=== PATIENT | female | born 1935 | race Two or more races ===

== ENCOUNTER 2016-07-23 12:46 | Emergency (ER) | payer MEDICARE, MEDICAID ==
[~2016-07-23] VITALS: Ht 149.9 cm; Wt 72.6 kg
[~2016-07-23 12:46] MED LIST: AMLO10TA2 PO; ASPI81TA2 PO; ATOR40TA PO; CARV6.252 PO; DICL75TA5 PO; ESOM40CA PO; GABA-532 PO; METF500T4 PO; SITA100T PO; SOLI10TA PO; SULF1TAB3 PO
[2016-07-23] MEDS ORDERED: IV NS 0.9% 1,000 ML BAG IV ONE (13:00)
[2016-07-23] MEDS ORDERED: IV SET PRIMARY 1 EA INFUS.SET MC ONE (13:02)
[2016-07-23] MEDS ORDERED: IV NS 0.9% 1,000 ML ONE (13:02)
[2016-07-23 13:18] LABS: BASOPHILS % (AUTO) 0.4 % (0.0-2.0); DIFF TOTAL % 100 %; EOSINOPHILS # (AUTO) 0.4 /CMM (0.0-0.7); EOSINOPHILS % (AUTO) 4.5 % (0.0-6.0); HEMATOCRIT 37 % (33-45); HEMOGLOBIN 12.7 g/dL (11.5-14.8); LYMPHOCYTES # (AUTO) 1.8 /CMM (0.8-4.8); LYMPHOCYTES % (AUTO) 21.3 % (20.0-44.0); MEAN CORPUSCULAR HEMOGLOBIN 32 PG (26.0-33.0); MEAN CORPUSCULAR HGB CONC 34 g/dl (31.0-36.0); MEAN CORPUSCULAR VOLUME 94 fL (82-100); MONOCYTES # (AUTO) 0.5 /CMM (0.1-1.30); MONOCYTES % (AUTO) 6.5 % (2.0-12.0); NEUTROPHILS # (AUTO) 5.7 /CMM (1.8-8.9); NEUTROPHILS % (AUTO) 67.3 % (43.0-81.0); PLATELET COUNT (AUTO) 239 /CMM (150-450); RED BLOOD CELL COUNT(AUTO) 3.97 MIL/uL (4.0-5.2); WHITE BLOOD COUNT (AUTO) 8.4 K/uL (4.3-11.0)
[2016-07-23 13:48] LABS: ALANINE AMINOTRANSFERASE 30 U/L (12-78); ALBUMIN 3.5 g/dL (3.4-5.0); ANION GAP 15 (5-14); ASPARTATE AMINOTRANSFERASE 20 U/L (15-37); BILIRUBIN,DIRECT 0.1 mg/dL (0.0-0.2); BILIRUBIN,TOTAL 0.3 mg/dL (0.2-1.0); CALCIUM, SERUM 8.6 mg/dL (8.5-10.1); CARBON DIOXIDE 26 mmol/L (21-32); CHLORIDE 99 mmol/L (98-107); INDIRECT BILIRUBIN 0.2 mg/dL (0.0-1.1); POTASSIUM 3.8 mmol/L (3.5-5.1); SODIUM SERUM 137 mmol/L (136-145); TOTAL PROTEIN, SERUM 7.4 g/dL (6.4-8.2); UREA NITROGEN, BLOOD 15 mg/dL (7-18)
[2016-07-23 13:49] LABS: TROPONIN I < 0.017 ng/mL (0.00-0.056)
[2016-07-23 13:50] LABS: GLUCOSE 366 mg/dL (74-106)
[2016-07-23 14:05] VITALS: BP 114/69
== END 2016-07-23 14:06 | disposition home or self-care (01) ==
LOC: ER 12:49
DX: E11.65 Type 2 diabetes mellitus with hyperglycemia (principal); N39.0 Urinary tract infection, site not specified; K21.9 Gastro-esophageal reflux disease without esophagitis
CPT/HCPCS: 71010; 80048; 80076; 82962 ×2; 84484; 85025; 93005; 96360; 99285; A4606; J7030; Z7610

== ENCOUNTER 2022-07-17 14:35 | Inpatient (IN) | payer MEDICARE, MEDICAID ==
[~2022-07-17] VITALS: Ht 152.4 cm; Wt 63.5 kg
[~2022-07-17 14:35] MED LIST changes: +AMLO-213 PO; -AMLO10TA2 PO; +ASPI-1169 PO; -ASPI81TA2 PO; +METF-440 PO; -METF500T4 PO; -SOLI10TA PO; +SOLI10TA2 PO
--- NOTE | 2022-07-17 14:50 | NUR ---
DR REGALADO AT BEDSIDE
[2022-07-17] MEDS ORDERED: IV NS 0.9% 1,000 ML BAG IV ONE (15:00)
--- NOTE | 2022-07-17 15:00 | NUR ---
IV ESTABLISHED L AC 20G. LABS DRAWN AND SENT.
[2022-07-17 15:32] LABS: BASOPHILS % (AUTO) 0.1 % (0.0-2.0); EOSINOPHILS % (AUTO) 0.8 % (0.0-6.0); HEMATOCRIT 34 % (33-45); HEMOGLOBIN 10.7 g/dL (11.5-14.8); LYMPHOCYTES % (AUTO) 6.6 % (20.0-44.0); MEAN CORPUSCULAR HGB CONC 32 g/dl (31.0-36.0); MEAN CORPUSCULAR VOLUME 98 fL (82-100); MONOCYTES # (AUTO) 1.1 K/uL (0.1-1.30); MONOCYTES % (AUTO) 7.3 % (2.0-12.0); NEUTROPHILS # (AUTO) 12.4 K/uL (1.8-8.9); NEUTROPHILS % (AUTO) 85.2 % (43.0-81.0); PLATELET COUNT (AUTO) 148 K/uL (150-450); RED BLOOD CELL COUNT(AUTO) 3.45 MIL/uL (4.0-5.2); WHITE BLOOD COUNT (AUTO) 14.6 K/uL (4.3-11.0)
[2022-07-17 15:45] LABS: CALCIUM, SERUM 8.3 mg/dL (8.5-10.1); CARBON DIOXIDE 23 mmol/L (21-32); CHLORIDE 95 mmol/L (98-107); CREATININE 1.9 mg/dL (0.6-1.3); POTASSIUM 4.5 mmol/L (3.5-5.1); SODIUM SERUM 128 mmol/L (136-145); UREA NITROGEN, BLOOD 51 mg/dL (7-18)
[2022-07-17 15:52] LABS: ALANINE AMINOTRANSFERASE 27 U/L (12-78); ALBUMIN 2.5 g/dL (3.4-5.0); ALKALINE PHOSPHATASE 90 U/L (46-116); ASPARTATE AMINOTRANSFERASE 22 U/L (15-37); BILIRUBIN,DIRECT 0.1 mg/dL (0.0-0.2); BILIRUBIN,TOTAL 0.2 mg/dL (0.2-1.0); LIPASE 158 U/L (73-393); TOTAL PROTEIN, SERUM 6.6 g/dL (6.4-8.2)
[2022-07-17 15:59] LABS: GLUCOSE 419 mg/dL (74-106)
--- NOTE | 2022-07-17 16:09 | NUR ---
CALLED ADMITTING AND WAS NOTIFIED THAT THE PT IS ABLE TO STAY
[2022-07-17] MEDS ORDERED: FLUT1DIS3 INH (16:10)
[2022-07-17] MEDS ORDERED: CELE-85 PO (16:10)
[2022-07-17] MEDS ORDERED: BENA20TA9 PO (16:10)
[2022-07-17] MEDS ORDERED: DAPA10TA PO (16:10)
[2022-07-17] MEDS ORDERED: SIMV-46 PO (16:10)
[2022-07-17] MEDS ORDERED: GLIM4TAB37 PO (16:10)
--- NOTE | 2022-07-17 16:16 | NUR ---
RAPID COVID SWAB DONE AND SENT TO LAB
[2022-07-17] MEDS ORDERED: CEFTRIAXONE 1GM BAG (ER ONLY) 1 GM/50 ML PIGGYBACK IV ONE (17:30)
[2022-07-17] MEDS ORDERED: INSULIN REGULAR, HUMAN 100 UNIT/ML 10 ML VIAL SQ ONE (17:30)
[2022-07-17] MEDS ORDERED: AZITHROMYCIN 500 MG in IV D5W 250 ML IV ONE (17:30)
[2022-07-17] MEDS ORDERED: INSULIN REGULAR, HUMAN 100 UNIT/ML 10 ML VIAL ONE (17:54)
[2022-07-17] MEDS ORDERED: CEFTRIAXONE 1 G in IV D5W 50 ML IV ONE (18:00)
--- NOTE | 2022-07-17 18:01 | NUR ---
ROOM ASSIGNED 326.1 ADMITTING AWARE
--- NOTE | 2022-07-17 18:36 | NUR ---
REPORT GIVEN TO BONITA MCKAY OF [facility]
[2022-07-17] MEDS ORDERED: Z GUARD REMEDY 4 OZ OINT TP PRN (19:00)
[2022-07-17] MEDS ORDERED: ONDANSETRON HCL/PF 4 MG/2 ML VIAL IVP PRN (19:00)
[2022-07-17] MEDS ORDERED: DEXTROSE 50%-WATER 50 ML DISP.SYRIN IV PRN (19:00)
--- NOTE | 2022-07-17 19:45 | NUR ---
CUSTOMER SUPPORT ASSISTANTREFRACTORY TECHNICIAN NOTES - RECEIVED PATIENT FROM ED [facility]IA [facility] AT 1855 UNDER THE CARE OF JUSTIN SAEZ WITH DX OF PNA AND HYPERGLYCEMIA. PATIENT IS A/O X2 AND A POOR HISTORIAN. LABORED AND DEEP BREATHING NOTED, ON O2 AT 2LPM VIA NASAL CANULA. DENIES PAIN AT THIS TIME. HAS RIGHT AND LEFT FOREARM IV ACCESS #20G, BOTH SALINE LOCKED. NO S/S OF INFILTRATION NOTED. ORIENTED PATIENT TO UNIT AND STAFF. ALL BELONGINGS ACCOUNTED FOR. PHYSICAL ASSESSMENT DONE AND PHOTOS TAKEN. SAFETY PRECAUTIONS IN PLACE: BED LOCKED AND IN LOWEST POSITION, SIDE RAILS UP X3, CALL LIGHT WITHIN REACH. WILL CONTINUE PLAN OF CARE.
[2022-07-17 20:00] VITALS: BP 153/65
--- NOTE | 2022-07-17 20:36 | NUR ---
RECEIVED CALL FROM LAB CRITICAL VALUE: PROCALCITONIN 12.07. NOTIFIED HOSPITALIST NILA WITH NO NEW ORDER. ATTEMPTED TO CALL DTR AT [phone] TO GET MORE INFORMATION ABOUT THE PATIENT, NO ANSWER AND VMB FULL.
[2022-07-17] MEDS: HEPARIN SODIUM, PORCINE 5000 UNITS/1 ML VIAL SQ SCH (21:54)
[2022-07-17] MEDS: INSULIN REGULAR, HUMAN 100 UNIT/ML 3 ML VIAL SQ PRN (22:02)
[2022-07-17] MEDS: BLOOD SUGAR DIAGNOSTIC 1 EACH STRIP IN SCH (22:02)
[2022-07-17] MEDS: IV NS 0.9% 1,000 ML IV PRN (22:06)
[2022-07-17] MEDS: ACETAMINOPHEN 325 MG TABLET PO PRN (22:32)
--- NOTE | 2022-07-17 22:32 | NUR ---
PATIENT C/O HEADACHE, GAVE PRN TYLENOL 650 MG.
[2022-07-18] VITALS (7 sets, daily range): BP systolic 93–146; BP diastolic 43–70
[2022-07-18] MEDS: ACETAMINOPHEN 325 MG TABLET PO PRN ×2 (06:13→21:25)
[2022-07-18 06:22] LABS: BASOPHILS % (AUTO) 0.1 % (0.0-2.0); EOSINOPHILS % (AUTO) 0.5 % (0.0-6.0); HEMATOCRIT 32 % (33-45); HEMOGLOBIN 10.5 g/dL (11.5-14.8); LYMPHOCYTES # (AUTO) 0.5 K/uL (0.8-4.8); LYMPHOCYTES % (AUTO) 3.6 % (20.0-44.0); MEAN CORPUSCULAR HGB CONC 33 g/dl (31.0-36.0); MEAN CORPUSCULAR VOLUME 96 fL (82-100); MONOCYTES # (AUTO) 0.7 K/uL (0.1-1.30); MONOCYTES % (AUTO) 4.9 % (2.0-12.0); NEUTROPHILS % (AUTO) 90.9 % (43.0-81.0); PLATELET COUNT (AUTO) 142 K/uL (150-450); RED BLOOD CELL COUNT(AUTO) 3.34 MIL/uL (4.0-5.2); WHITE BLOOD COUNT (AUTO) 14.3 K/uL (4.3-11.0)
[2022-07-18] MEDS: BLOOD SUGAR DIAGNOSTIC 1 EACH STRIP IN SCH ×4 (06:32→21:25)
[2022-07-18] MEDS: INSULIN REGULAR, HUMAN 100 UNIT/ML 3 ML VIAL SQ PRN ×4 (06:32→21:27)
--- NOTE | 2022-07-18 06:43 | NUR ---
STRADDLE TRUCK DRIVER CLOSING NOTES - PATIENT SLEEPING IN BED, EASY TO AROUSE. STILL ON O2 AT 2LPM VIA NASAL CANULA. USE OF ACCESSORY MUSCLE NOTED. NOT IN APPARENT DISTRESS. AFEBRILE. ON TELE MONITOR READING SINUS RHYTHM WITH 1ST DEGREE AV BLOCK AT 97 BPM. LEFT FOREARM IV ACCESS #20G INTACT, PATENT AND FLUSHING. ALL DUE MEDS GIVEN AND NEEDS ATTENDED. SAFETY PRECAUTIONS MAINTAINED. WILL ENDORSE TO NEXT SHIFT FOR CONTINUITY OF CARE.
--- NOTE | 2022-07-18 07:00 | NUR ---
GERIATRIC PHYSICAL THERAPIST OPENING NOTES PATIENT LAYING IN BED, A/O X 2, TOLERATING WELL ON 2 LPM O2 VIA CANNULA WITH NO S/S RESPIRATORY DISTRESS. NO COMPLAINTS OF PAIN OR DISCOMFORT AT THIS TIME. TELE MONITOR IN PLACE READING SR 98. L FOREARM # 20 INTACT, INFUSING NS @ 75 ML/HR. SAFETY MEASURES IN PLACE: BED IN LOWEST LOCKED POSITION, SIDE RAILS UP X 2, CALL LIGHT WITHIN REACH. WILL CONTINUE TO MONITOR.
[2022-07-18 07:12] LABS: CALCIUM, SERUM 8.2 mg/dL (8.5-10.1); CREATININE 1.1 mg/dL (0.6-1.3); MAGNESIUM 1.7 mg/dL (1.8-2.4); PHOSPHORUS 2.5 mg/dL (2.5-4.9); POTASSIUM 3.8 mmol/L (3.5-5.1)
[2022-07-18 07:18] LABS: THYROID STIMULATING HORMONE 0.594 uIU/mL (0.358-3.74)
[2022-07-18] MEDS: PANTOPRAZOLE 40 MG TABLET.DR PO SCH (07:58)
[2022-07-18] MEDS: GLIMEPIRIDE 4 MG TABLET PO SCH ×2 (08:40→16:06)
[2022-07-18] MEDS: DAPAGLIFLOZIN PROPANEDIOL 5 MG TABLET PO SCH (08:44)
[2022-07-18] MEDS: HEPARIN SODIUM, PORCINE 5000 UNITS/1 ML VIAL SQ SCH ×2 (08:57→21:13)
[2022-07-18] MEDS ORDERED: Magnesium 1GM/D5W 100ML PREMIX 100 ML IV SCH (09:00)
--- NOTE | 2022-07-18 11:25 | NUR ---
WOUND CARE CONSULT: PT PRESENTS WITH RASH TO BRESTFOLDS, ABDOMINAL/GROIN FOLDS AND BUTTOCKS, PRESENT ON ADMISSION. SACRAL SCARRING NOTED. RECOMMENDATIONS MADE FOR SKIN PROTECTION. DISCUSSED WITH NURSING STAFF. PT IS INCONTINENT. MD IN AGREEMENT WITH PLAN OF CARE.
[2022-07-18] MEDS: IV NS 0.9% 1,000 ML IV PRN (12:36)
[2022-07-18] MEDS: GUAIFENESIN/D-METHORPHAN HB 5 ML UDC PO PRN ×2 (12:54→17:09)
[2022-07-18] MEDS: SOD FERRIC GLUC 125 MG in IV NS 0.9% 100 ML IV SCH (13:37)
[2022-07-18] MEDS: CLOTRIMAZOLE 1% 15 GM TUBE TP SCH (16:08)
[2022-07-18] MEDS: AZITHROMYCIN 500 MG in IV D5W 250 ML IV SCH (17:10)
--- NOTE | 2022-07-18 18:36 | NUR ---
FIELD CREW CHIEF CLOSING NOTES PATIENT LAYING IN BED, A/O X 3, TOLERATING WELL ON 2 LPM O2 VIA CANNULA WITH NO S/S RESPIRATORY DISTRESS. NO COMPLAINTS OF PAIN OR DISCOMFORT AT THIS TIME. TELE MONITOR IN PLACE READING SR. L FOREARM # 20 INTACT, INFUSING NS @ 75 ML/HR. SAFETY MEASURES IN PLACE: BED IN LOWEST LOCKED POSITION, SIDE RAILS UP X 2, CALL LIGHT WITHIN REACH. ALL NEEDS MET. WILL ENDORSE TO SHUTTLE OPERATOR FOR TATIANA.
--- NOTE | 2022-07-18 19:43 | NUR ---
RN OPENING NOTES RECEIVED PT IN BED, ASLEEP, AWAKENS TO VERBAL STIMULI. AOx2-3. ON NC 2LPM AND TOLERATING WELL. NO SOB NOTED. NO S/SX OF RESPIRATORY DISTRESS NOTED. TELE MONITOR DETECTS SINUS RHYTHM. IV ACCESS IN LFA #20 G RUNNNING NS @75 ML/HR. SAFETY PRECAUTIONS IN PLACE: BED IN LOWEST, LOCKED POSITION, SIDERAILS UPx2, AND BRAKES ON. TABLE AND CALL LIGHT WITHIN REACH. ALL NEEDS MET AT THIS TIME.
[2022-07-18] MEDS: ALBUTEROL FS 2.5 MG/3 ML VIAL.NEB NEB PRN (21:06)
[2022-07-18] MEDS: IPRATROPIUM NEB FS 0.5 MG/2.5 ML AMPUL.NEB NEB PRN (21:06)
[2022-07-18] MEDS: SIMVASTATIN 20 MG TABLET PO SCH (21:11)
[2022-07-19] VITALS: BP 142/55
[2022-07-19 04:00] VITALS: BP 149/56
[2022-07-19 06:39] LABS: BASOPHILS % (AUTO) 0.1 % (0.0-2.0); EOSINOPHILS % (AUTO) 1.5 % (0.0-6.0); HEMATOCRIT 32 % (33-45); HEMOGLOBIN 10.5 g/dL (11.5-14.8); LYMPHOCYTES # (AUTO) 0.9 K/uL (0.8-4.8); LYMPHOCYTES % (AUTO) 6.7 % (20.0-44.0); MEAN CORPUSCULAR HGB CONC 33 g/dl (31.0-36.0); MEAN CORPUSCULAR VOLUME 95 fL (82-100); MONOCYTES # (AUTO) 1.7 K/uL (0.1-1.30); MONOCYTES % (AUTO) 12.2 % (2.0-12.0); NEUTROPHILS # (AUTO) 11.2 K/uL (1.8-8.9); NEUTROPHILS % (AUTO) 79.5 % (43.0-81.0); PLATELET COUNT (AUTO) 166 K/uL (150-450); RED BLOOD CELL COUNT(AUTO) 3.37 MIL/uL (4.0-5.2); WHITE BLOOD COUNT (AUTO) 14.1 K/uL (4.3-11.0)
[2022-07-19] MEDS: BLOOD SUGAR DIAGNOSTIC 1 EACH STRIP IN SCH ×4 (06:40→22:56)
[2022-07-19] MEDS: INSULIN REGULAR, HUMAN 100 UNIT/ML 3 ML VIAL SQ PRN ×4 (06:41→23:02)
--- NOTE | 2022-07-19 06:53 | NUR ---
RN CLOSING NOTES PT IN BED, ASLEEP, AWAKENS TO VERBAL STIMULI. AOx2-3. ON NC 2LPM AND TOLERATING WELL. NO SOB NOTED. NO S/SX OF RESPIRATORY DISTRESS NOTED. TELE MONITOR DETECTS SINUS RHYTHM. IV ACCESS IN LFA #20 G RUNNNING NS @75 ML/HR. ALL ORDERS CARRIED OUT. ALL NEEDS MET. PT KEPT CLEAN AND DRY. SAFETY PRECAUTIONS IN PLACE: BED IN LOWEST, LOCKED POSITION, SIDERAILS UPx2, AND BRAKES ON. TABLE AND CALL LIGHT WITHIN REACH. WILL ENDORSE TO ONCOMING SHIFT FOR TATIANA.
[2022-07-19 07:16] LABS: CALCIUM, SERUM 8.8 mg/dL (8.5-10.1); MAGNESIUM 2.1 mg/dL (1.8-2.4); PHOSPHORUS 3.3 mg/dL (2.5-4.9); POTASSIUM 3.4 mmol/L (3.5-5.1)
[2022-07-19 08:00] VITALS: BP 155/69
--- NOTE | 2022-07-19 08:05 | NUR ---
RN OPENING NOTE RECEIVED PATIENT IN BED, AO X 2. ABLE TO RESPONDS PHYSICAL STIMULI. RESPIRATORY EVEN AND UNLABORED OO OXYGEN AT 2 Ls VIA NC. IN NO ACUTE DISTRESS OBSERVED. SKIN IS WARM TO TOUCH, KEEP CLEAN/DRY. KEPT ELEVATED HOB FOR ASPIRATION PRECAUTION/ENSURE AIRWAY, AND LOWEST BED POSITIONED. BED ALARM IS ON AT ALL THE TIME FOR SAFETY. CALL LIGHT WITHIN REACH, WILL CONTINUE TO MONITOR
[2022-07-19] MEDS: ACETAMINOPHEN 325 MG TABLET PO PRN ×2 (08:15→19:54)
[2022-07-19] MEDS: GLIMEPIRIDE 4 MG TABLET PO SCH ×2 (08:15→16:59)
[2022-07-19] MEDS: PANTOPRAZOLE 40 MG TABLET.DR PO SCH (08:15)
[2022-07-19] MEDS: IPRATROPIUM NEB FS 0.5 MG/2.5 ML AMPUL.NEB NEB PRN (08:18)
[2022-07-19] MEDS: ALBUTEROL FS 2.5 MG/3 ML VIAL.NEB NEB PRN (08:19)
[2022-07-19] MEDS: DAPAGLIFLOZIN PROPANEDIOL 5 MG TABLET PO SCH (08:19)
[2022-07-19] MEDS: HEPARIN SODIUM, PORCINE 5000 UNITS/1 ML VIAL SQ SCH ×2 (08:20→21:15)
[2022-07-19] MEDS: CLOTRIMAZOLE 1% 15 GM TUBE TP SCH ×2 (08:22→17:01)
--- NOTE | 2022-07-19 09:58 | NUR ---
PATIENT C/O HEADACHE, GIVEN TYLENOL 650 MG. REACCESSED PATIENT'S PAIN, PATIENT STATED " A HEADACHE IS RELIEF", 1/10 FROM THE PAIN SCALE. WILL CONTINUE TO MONITOR.
[2022-07-19] MEDS ORDERED: POTASSIUM CHLORIDE 20 MEQ TAB.PRT.SR PO SCH (11:30)
[2022-07-19] MEDS ORDERED: FUROSEMIDE 20 MG/2 ML VIAL IV SCH (13:30)
[2022-07-19] MEDS: SOD FERRIC GLUC 125 MG in IV NS 0.9% 100 ML IV SCH (13:57)
[2022-07-19 16:00] VITALS: BP 157/71
[2022-07-19 16:19] LABS: BAND % (MANUAL) 6 % (0.0-5.0); EOSINOPHILS % (MANUAL) 1 % (0-4); LYMPHOCYTES % (MANUAL) 10 % (16-48); MONOCYTES % (MANUAL) 9 % (0-11.0); NEUTROPHILS % (MANUAL) 74 (42-76)
[2022-07-19] MEDS: CEFTRIAXONE 1 G in IV D5W 50 ML IV SCH (16:59)
[2022-07-19] MEDS: AZITHROMYCIN 500 MG in IV D5W 250 ML IV SCH (17:51)
--- NOTE | 2022-07-19 18:50 | NUR ---
RN CLOSING NOTE PATIENT RESTING IN BED. IN NO ACUTE DISTRESS OBSERVED AND NO ADVERSE REACTION OBSERVED FROM ABX. RESPIRATORY EVEN AND UNLABORED ON OXYGEN AT 2Ls VIA. IN NO RESPIRATORY DISTRESS NOTED. SKIN IS WARM TO TOUCH KEEP CLEAN/DRY. ENCOURAGED PATIENT TO ORAL FLUID INTAKE TOLERATED. KEPT ELEVATED HOB FOR ENSURE AIRWAY/ASPIRATION PRECAUTION, AND LOWEST BED POSITION. BED ALARM IS ON AT ALL THE TIME FOR SAFETY. CALL LIGHT WITHIN REACH, WILL ENDORSE LOGISTICS CENTER MANAGER. Addendum: 07/19/22 at 1855 by JUANITA COLUNGA RN ERROR
--- NOTE | 2022-07-19 18:55 | NUR ---
RN CLOSING NOTE PATIENT RESTING IN BED. IN NO ACUTE DISTRESS OBSERVED AND NO ADVERSE REACTION OBSERVED FROM ABX. RESPIRATORY EVEN AND UNLABORED ON OXYGEN AT 2Ls VIA. IN NO RESPIRATORY DISTRESS NOTED. SKIN IS WARM TO TOUCH KEEP CLEAN/DRY. KEPT ELEVATED HOB FOR ENSURE AIRWAY/ASPIRATION PRECAUTION, AND LOWEST BED POSITION. BED ALARM IS ON AT ALL THE TIME FOR SAFETY. CALL LIGHT WITHIN REACH, WILL ENDORSE ELECTRICAL TEST TECHNICIAN.
--- NOTE | 2022-07-19 19:30 | NUR ---
RN OPENING NOTES RECEIVED PT IN BED, AWAKE, WATCHING TV. AOx2-3. ON NC 2LPM AND TOLERATING WELL. NO SOB NOTED. NO S/SX OF RESPIRATORY DISTRESS NOTED. TELE MONITOR DETECTS SINUS RHYTHM. IV ACCESS IN R WRIST #22G. IV IS INTACT, PATENT, AND FLUSHING WELL. SAFETY PRECAUTIONS IN PLACE: BED IN LOWEST, LOCKED POSITION, SIDERAILS UPx2, AND BRAKES ON. TABLE AND CALL LIGHT WITHIN REACH. ALL NEEDS MET AT THIS TIME.
[2022-07-19 20:00] VITALS: BP 148/69
[2022-07-19] MEDS: SIMVASTATIN 20 MG TABLET PO SCH (21:31)
[2022-07-20] VITALS: BP 92/18
[2022-07-20] MEDS: GUAIFENESIN/D-METHORPHAN HB 5 ML UDC PO PRN ×2 (05:25→22:08)
[2022-07-20 05:46] LABS: BASOPHILS % (AUTO) 0.1 % (0.0-2.0); EOSINOPHILS % (AUTO) 3.2 % (0.0-6.0); HEMATOCRIT 35 % (33-45); HEMOGLOBIN 11.6 g/dL (11.5-14.8); LYMPHOCYTES # (AUTO) 1.1 K/uL (0.8-4.8); LYMPHOCYTES % (AUTO) 11.4 % (20.0-44.0); MEAN CORPUSCULAR HGB CONC 33 g/dl (31.0-36.0); MEAN CORPUSCULAR VOLUME 95 fL (82-100); MONOCYTES # (AUTO) 1.4 K/uL (0.1-1.30); MONOCYTES % (AUTO) 14.1 % (2.0-12.0); NEUTROPHILS % (AUTO) 71.2 % (43.0-81.0); PLATELET COUNT (AUTO) 211 K/uL (150-450); RED BLOOD CELL COUNT(AUTO) 3.66 MIL/uL (4.0-5.2); WHITE BLOOD COUNT (AUTO) 9.9 K/uL (4.3-11.0)
[2022-07-20 06:11] LABS: CALCIUM, SERUM 8.8 mg/dL (8.5-10.1); CREATININE 1.1 mg/dL (0.6-1.3); MAGNESIUM 1.7 mg/dL (1.8-2.4); PHOSPHORUS 3.5 mg/dL (2.5-4.9); POTASSIUM 3.4 mmol/L (3.5-5.1)
[2022-07-20] MEDS: ACETAMINOPHEN 325 MG TABLET PO PRN ×3 (06:36→21:58)
[2022-07-20] MEDS: PANTOPRAZOLE 40 MG TABLET.DR PO SCH (06:36)
[2022-07-20] MEDS: INSULIN REGULAR, HUMAN 100 UNIT/ML 3 ML VIAL SQ PRN ×3 (06:37→22:10)
[2022-07-20] MEDS: BLOOD SUGAR DIAGNOSTIC 1 EACH STRIP IN SCH ×4 (06:38→21:52)
--- NOTE | 2022-07-20 06:44 | NUR ---
RN CLOSING NOTES PT IN BED, ASLEEP, AWAKENS TO VERBAL STIMULI. AOx2-3. ON NC 2LPM AND TOLERATING WELL. NO SOB NOTED. NO S/SX OF RESPIRATORY DISTRESS NOTED. TELE MONITOR DETECTS SINUS RHYTHM. IV ACCESS IN R WRIST #22G. IV IS INTACT, PATENT, AND FLUSHING WELL. ALL ORDERS CARRIED OUT. ALL NEEDS MET. PT KEPT CLEAN AND DRY. SAFETY PRECAUTIONS IN PLACE: BED IN LOWEST, LOCKED POSITION, SIDERAILS UPx2, AND BRAKES ON. TABLE AND CALL LIGHT WITHIN REACH. WILL ENDORSE TO ONCOMING SHIFT FOR TATIANA.
--- NOTE | 2022-07-20 07:57 | NUR ---
RN OPENING NOTES PT AWAKE IN BED, AOx2-3. ON NC 2LPM AND TOLERATING WELL. NO SOB NOTED. NO S/SX OF RESPIRATORY DISTRESS NOTED. TELE MONITOR DETECTS SINUS RHYTHM. IV ACCESS IN R WRIST #22G. IV IS INTACT, PATENT, AND FLUSHING WELL. PT KEPT CLEAN AND DRY. SAFETY PRECAUTIONS IN PLACE: BED IN LOWEST, LOCKED POSITION, SIDERAILS UPx2, AND BRAKES ON. TABLE AND CALL LIGHT WITHIN REACH. WILL CONTINUE TO MONITOR.
[2022-07-20 08:00] VITALS: BP 128/62
[2022-07-20] MEDS: DAPAGLIFLOZIN PROPANEDIOL 5 MG TABLET PO SCH (08:35)
[2022-07-20] MEDS: GLIMEPIRIDE 4 MG TABLET PO SCH ×2 (08:36→17:42)
[2022-07-20] MEDS: HEPARIN SODIUM, PORCINE 5000 UNITS/1 ML VIAL SQ SCH ×2 (08:39→21:52)
[2022-07-20] MEDS: CLOTRIMAZOLE 1% 15 GM TUBE TP SCH ×2 (08:46→17:50)
[2022-07-20] MEDS ORDERED: MAGNESIUM OXIDE 400 MG TABLET PO ONE (10:00)
[2022-07-20] MEDS ORDERED: POTASSIUM CHLORIDE 20 MEQ TAB.PRT.SR PO SCH (11:00)
[2022-07-20 12:00] VITALS: BP 104/56
[2022-07-20] MEDS: SOD FERRIC GLUC 125 MG in IV NS 0.9% 100 ML IV SCH (14:38)
[2022-07-20 16:00] VITALS: BP 154/76
[2022-07-20] MEDS: CEFTRIAXONE 1 G in IV D5W 50 ML IV SCH (16:43)
[2022-07-20] MEDS: AZITHROMYCIN 250 MG TABLET PO SCH (18:01)
--- NOTE | 2022-07-20 18:27 | NUR ---
RN CLOSING NOTES PT AWAKE IN BED AOx2-3. ON NC 2LPM AND TOLERATING WELL. NO SOB NOTED. NO S/SX OF RESPIRATORY DISTRESS NOTED. TELE MONITOR DETECTS SINUS RHYTHM. IV ACCESS IN R WRIST #22G. IV IS INTACT, PATENT, AND FLUSHING WELL. ALL ORDERS CARRIED OUT. ALL NEEDS MET. PT KEPT CLEAN AND DRY. SAFETY PRECAUTIONS IN PLACE: BED IN LOWEST, LOCKED POSITION, SIDERAILS UPx2, AND BRAKES ON. TABLE AND CALL LIGHT WITHIN REACH. WILL ENDORSE TO ONCOMING SHIFT FOR TATIANA.
--- NOTE | 2022-07-20 19:35 | NUR ---
DOUBLE BOTTOM DRIVER OPENING NOTE PATIENT AWAKE IN BED, ALERT/ORIENTED X 2, [place]ON[place] SPEAKING, PT ABLE TO MAKE NEEDS KNOWN IN [place]. PATIENT STABLE ON 2 LPM PF O2 VIA NASAL CANNULA, NO S/S OF DISTRESS OR SOB NOTED, BREATHING EVEN AND UNLABORED. PATIENT ON EXTERNAL COFFEE MAKER READING SINUS RHYTHM, HR: 89. IV ACCESS ON RIGHT WRIST #22G INTACT AND SALINE LOCKED. PUREWICK IN PLACE AND DRAINING YELLOW URINE. SAFETY MEASURES IN PLACE: CALL LIGHT WITHIN REACH, SIDE RAILS UP X 3, BED LOCKED IN LOWEST POSITION, HOB ELEVATED, BED ALARM ON. WILL CONTINUE TO MONITOR PATIENT
[2022-07-20 20:00] VITALS: BP 162/92
[2022-07-20] MEDS: SIMVASTATIN 20 MG TABLET PO SCH (21:51)
--- NOTE | 2022-07-20 22:10 | NUR ---
LOCKSTITCH LINING SETTER NOTE PATIENT C/O OF HEADACHE AND COUGH, TYLENOL 650 MG PO AND ROBITUSSIN 5 ML GIVEN ORDERED. WILL CONTINUE TO MONITOR
--- NOTE | 2022-07-20 22:21 | NUR ---
MS RN NOTE REASSESSED PATIENT'S BP, BP 163/83, HR:95. NOTIFIED VE TEACHER MD CARON DOTSON WITH ORDER FOR PRN HYDRALAZINE 10 MG IV Q4H FOR SBP > 170. WILL CONTINUE TO MONITOR
[2022-07-20] MEDS ORDERED: hydrALAZINE HCL IV 20 MG VIAL IV PRN (22:30)
[2022-07-21] MEDS: GUAIFENESIN/D-METHORPHAN HB 5 ML UDC PO PRN ×2 (06:50→14:25)
[2022-07-21] MEDS: INSULIN REGULAR, HUMAN 100 UNIT/ML 3 ML VIAL SQ PRN ×4 (06:53→22:03)
[2022-07-21] MEDS: BLOOD SUGAR DIAGNOSTIC 1 EACH STRIP IN SCH ×4 (06:55→22:02)
--- NOTE | 2022-07-21 07:21 | NUR ---
ACTOR UNDERSTUDY CLOSING NOTE PATIENT DOZING OFF IN BED, ALERT/ORIENTED X 2, [place] SPEAKING, PT ABLE TO MAKE NEEDS KNOWN IN [place]. PATIENT STABLE ON 2 LPM PF O2 VIA NASAL CANNULA, NO S/S OF DISTRESS OR SOB NOTED, BREATHING EVEN AND UNLABORED. PATIENT ON EXTERNAL DESK MANAGER READING SINUS RHYTHM, HR: 87. IV ACCESS ON RIGHT WRIST #22G INTACT AND SALINE LOCKED. PUREWICK IN PLACE AND DRAINING YELLOW URINE, OUTPUT OF 1800 ML, PUREWICK CHANGED THIS MORNING. MEDICATIONS GIVEN ORDERED, PT NEEDS MET THROUGHOUT SHIFT, WOUND CARE PHOTOS TAKEN AND PLACED IN CHART. SAFETY MEASURES IN PLACE: CALL LIGHT WITHIN REACH, SIDE RAILS UP X 3, BED LOCKED IN LOWEST POSITION, HOB ELEVATED, BED ALARM ON. ENDORSED TO DAYSHIFT RN FOR CONTINUITY OF CARE
--- NOTE | 2022-07-21 07:34 | NUR ---
GI TECHNICIAN OPENING NOTE PATIENT AWAKE IN BED ALERT/ORIENTED X 2-3, PT ABLE TO MAKE NEEDS KNOWN. PATIENT STABLE ON 2 LPM PF O2 VIA NASAL CANNULA, NO S/S OF DISTRESS OR SOB NOTED, BREATHING EVEN AND UNLABORED. PATIENT ON EXTERNAL INSPECTOR SHELLS READING SINUS RHYTHM, HR: 80. IV ACCESS ON RIGHT WRIST #22G INTACT AND SALINE LOCKED. PUREWICK IN PLACE AND DRAINING YELLOW URINE. SAFETY MEASURES IN PLACE: CALL LIGHT WITHIN REACH, SIDE RAILS UP X 3, BED LOCKED IN LOWEST POSITION, HOB ELEVATED, BED ALARM ON. WILL CONTINUE TO MONITOR.
[2022-07-21 08:00] VITALS: BP 137/63
[2022-07-21] MEDS: PANTOPRAZOLE 40 MG TABLET.DR PO SCH (08:43)
[2022-07-21] MEDS: DAPAGLIFLOZIN PROPANEDIOL 5 MG TABLET PO SCH (08:44)
[2022-07-21] MEDS: GLIMEPIRIDE 4 MG TABLET PO SCH ×2 (08:44→17:13)
[2022-07-21] MEDS: HEPARIN SODIUM, PORCINE 5000 UNITS/1 ML VIAL SQ SCH ×2 (08:45→20:44)
[2022-07-21] MEDS: CLOTRIMAZOLE 1% 15 GM TUBE TP SCH ×2 (10:02→17:22)
[2022-07-21] MEDS ORDERED: FUROSEMIDE 20 MG/2 ML VIAL IV ONE (10:30)
[2022-07-21 10:40] LABS: BASOPHILS % (AUTO) 0.2 % (0.0-2.0); EOSINOPHILS % (AUTO) 3.5 % (0.0-6.0); HEMATOCRIT 35 % (33-45); HEMOGLOBIN 11.6 g/dL (11.5-14.8); LYMPHOCYTES # (AUTO) 1.3 K/uL (0.8-4.8); LYMPHOCYTES % (AUTO) 14.6 % (20.0-44.0); MEAN CORPUSCULAR HGB CONC 33 g/dl (31.0-36.0); MEAN CORPUSCULAR VOLUME 95 fL (82-100); MONOCYTES # (AUTO) 1.3 K/uL (0.1-1.30); MONOCYTES % (AUTO) 14.6 % (2.0-12.0); NEUTROPHILS # (AUTO) 5.9 K/uL (1.8-8.9); NEUTROPHILS % (AUTO) 67.1 % (43.0-81.0); PLATELET COUNT (AUTO) 260 K/uL (150-450); RED BLOOD CELL COUNT(AUTO) 3.71 MIL/uL (4.0-5.2); WHITE BLOOD COUNT (AUTO) 8.8 K/uL (4.3-11.0)
[2022-07-21 11:00] LABS: CALCIUM, SERUM 8.8 mg/dL (8.5-10.1); MAGNESIUM 1.8 mg/dL (1.8-2.4); POTASSIUM 3.4 mmol/L (3.5-5.1)
[2022-07-21] MEDS: SOD FERRIC GLUC 125 MG in IV NS 0.9% 100 ML IV SCH (15:46)
[2022-07-21 16:00] VITALS: BP 141/99
[2022-07-21] MEDS: CEFTRIAXONE 1 G in IV D5W 50 ML IV SCH (17:12)
[2022-07-21] MEDS: AZITHROMYCIN 250 MG TABLET PO SCH (17:13)
[2022-07-21] MEDS ORDERED: FUROSEMIDE 40 MG/4 ML VIAL IV SCH (18:00)
[2022-07-21] MEDS: POTASSIUM CHLORIDE 20 MEQ TAB.PRT.SR PO SCH ×2 (18:01→18:58)
--- NOTE | 2022-07-21 18:22 | NUR ---
PRINCIPAL GIFTS OFFICER CLOSING NOTE PATIENT AWAKE IN BED ALERT/ORIENTED X 2-3, PT ABLE TO MAKE NEEDS KNOWN. PATIENT STABLE ON 2 LPM PF O2 VIA NASAL CANNULA, NO S/S OF DISTRESS OR SOB NOTED, BREATHING EVEN AND UNLABORED. PATIENT ON EXTERNAL GOVERNMENT SALES MANAGER READING SINUS RHYTHM, HR: 95. IV ACCESS ON RIGHT WRIST #22G INTACT AND SALINE LOCKED. PUREWICK IN PLACE AND DRAINING YELLOW URINE. ALL DUE MEDS GIVEN. MEDICATIONS GIVEN ORDERED, PT NEEDS MET THROUGHOUT SHIFT. SAFETY MEASURES IN PLACE: CALL LIGHT WITHIN REACH, SIDE RAILS UP X 3, BED LOCKED IN LOWEST POSITION, HOB ELEVATED, BED ALARM ON. ENDORSED TO ASSISTANT OPERATOR RN FOR CONTINUITY OF CARE
--- NOTE | 2022-07-21 19:20 | NUR ---
caterpillar tractor operator opening notes Received Pt from morning nurse. Pt is sitting in bed comfortably. Pt is alert and orientedX2. Pt speaks Malawian and able to make needs known. On 2 L NC. No S/S of distress noted. Iv sites at R wrist # 18 is clean, intact and flushes well. Tele monitor showed SR. Safety precautions is maintianed. Bed at low position, brakes locked, side rails upX3, hob elevated, bed alarm is on and call light is within reach. Will continue to monitor.
[2022-07-21 20:00] VITALS: BP 125/67
[2022-07-21] MEDS: SIMVASTATIN 20 MG TABLET PO SCH (21:25)
--- NOTE | 2022-07-21 22:26 | NUR ---
RN notes Pt is having insomnia and requesting sleeping pill. informed and notified Dr. Lee. ordered restoril 15 mg/po/hs. order carried out.
[2022-07-21] MEDS ORDERED: TEMAZEPAM 15 MG CAPSULE PO PRN (22:30)
--- NOTE | 2022-07-21 22:56 | NUR ---
RN notes Pt is having insomnia and requesting a sleeping pill. administered restoril 15 mg/po/hs at ordered for sleeping per Pt's requested. safety precautions is maintained. will continue to monitor.
[2022-07-22] VITALS: BP 144/70
[2022-07-22] MEDS: BLOOD SUGAR DIAGNOSTIC 1 EACH STRIP IN SCH ×4 (06:33→21:51)
[2022-07-22] MEDS: INSULIN REGULAR, HUMAN 100 UNIT/ML 3 ML VIAL SQ PRN ×4 (06:35→21:54)
--- NOTE | 2022-07-22 06:40 | NUR ---
RN closing notes Pt is resting in bed comfortably. Pt is alert and orientedX2. Pt speaks Canadian and able to make needs known. On 2 L NC. No S/S of distress noted. Iv sites at R wrist # 18 is clean, intact and flushes well. Tele monitor showed SR 90. Routine meds were given as ordered. Vs is stable. Kept Pt clean, dry and comfortable. Purewick inplaced and draining yellow urine 1000ml. Kept Pt clean, dry and comfortable. all needs met and attended. Safety precautions is maintianed. Bed at low position, brakes locked, side rails upX3, hob elevated, bed alarm is on and call light is within reach. Will endorse to am nurse for TATIANA.
[2022-07-22] MEDS: PANTOPRAZOLE 40 MG TABLET.DR PO SCH (06:52)
[2022-07-22 06:56] LABS: ALANINE AMINOTRANSFERASE 30 U/L (12-78); ALBUMIN 2.3 g/dL (3.4-5.0); ALKALINE PHOSPHATASE 96 U/L (46-116); ASPARTATE AMINOTRANSFERASE 21 U/L (15-37); BILIRUBIN,TOTAL 0.2 mg/dL (0.2-1.0); CALCIUM, SERUM 8.9 mg/dL (8.5-10.1); CARBON DIOXIDE 27 mmol/L (21-32); CHLORIDE 98 mmol/L (98-107); CREATININE 1.1 mg/dL (0.6-1.3); GLUCOSE 158 mg/dL (74-106); MAGNESIUM 1.7 mg/dL (1.8-2.4); PHOSPHORUS 3.7 mg/dL (2.5-4.9); POTASSIUM 3.6 mmol/L (3.5-5.1); SODIUM SERUM 135 mmol/L (136-145); UREA NITROGEN, BLOOD 24 mg/dL (7-18)
[2022-07-22 07:01] LABS: BASOPHILS % (AUTO) 0.2 % (0.0-2.0); EOSINOPHILS % (AUTO) 3.3 % (0.0-6.0); HEMATOCRIT 36 % (33-45); LYMPHOCYTES # (AUTO) 1.9 K/uL (0.8-4.8); MEAN CORPUSCULAR HGB CONC 33 g/dl (31.0-36.0); MEAN CORPUSCULAR VOLUME 95 fL (82-100); MONOCYTES # (AUTO) 1.3 K/uL (0.1-1.30); MONOCYTES % (AUTO) 13.4 % (2.0-12.0); NEUTROPHILS # (AUTO) 6.4 K/uL (1.8-8.9); NEUTROPHILS % (AUTO) 64.1 % (43.0-81.0); PLATELET COUNT (AUTO) 324 K/uL (150-450); WHITE BLOOD COUNT (AUTO) 9.9 K/uL (4.3-11.0)
[2022-07-22 08:00] VITALS: BP 111/70
[2022-07-22] MEDS: HEPARIN SODIUM, PORCINE 5000 UNITS/1 ML VIAL SQ SCH ×2 (08:51→21:50)
[2022-07-22] MEDS: GLIMEPIRIDE 4 MG TABLET PO SCH ×2 (08:51→16:08)
[2022-07-22] MEDS: DAPAGLIFLOZIN PROPANEDIOL 5 MG TABLET PO SCH (08:52)
[2022-07-22] MEDS: CLOTRIMAZOLE 1% 15 GM TUBE TP SCH ×2 (08:52→16:08)
[2022-07-22 12:00] VITALS: BP 112/57
[2022-07-22] MEDS ORDERED: MAGNESIUM OXIDE 400 MG TABLET PO ONE (12:30)
[2022-07-22 16:00] VITALS: BP 126/55
[2022-07-22] MEDS: SOD FERRIC GLUC 125 MG in IV NS 0.9% 100 ML IV SCH (16:07)
[2022-07-22] MEDS: CEFTRIAXONE 1 G in IV D5W 50 ML IV SCH (17:12)
--- NOTE | 2022-07-22 18:21 | NUR ---
END OF SHIFT SUMMARY PATIENT IS A/O X3, WEANED OFF 02, SATURATING WELL ON RA. ON TELE, SR. PUREWICK IN PLACE, INCONTINENCE CARE PROVIDED. LOTRIMIN APPLIED TO FOLDS. SCDs FOR VTE. SAFETY MEASURES MAINTAINED. BED IN LOWEST POSITION, BRAKES LOCKED. SIDE RAILS UP X2. CALL LIGHT WITHIN REACH. WILL ENDORSE CONTINUITY OF CARE TO ONCOMING SHIFT.
--- NOTE | 2022-07-22 19:20 | NUR ---
GROUP COUNSELOR OPENING NOTE RECEIVED PATIENT AWAKE IN BED. PT ALERT/ORIENTED X 2-3, ABLE TO MAKE NEEDS KNOWN. STABLE ON O2 2 LPM VIA NASAL CANNULA. NO S/S OF DISTRESS OR SOB NOTED, BREATHING EVEN AND UNLABORED. PATIENT ON TELE MONITOR READING SINUS RHYTHM, HR: 80. IV ACCESS TO RIGHT WRIST #22G INTACT AND SALINE LOCKED. PUREWICK IN PLACE AND DRAINING YELLOW URINE. SAFETY MEASURES IN PLACE: CALL LIGHT WITHIN REACH, SIDE RAILS UP X 3, BED LOCKED IN LOWEST POSITION, HOB ELEVATED, BED ALARM ON. WILL CONTINUE TO MONITOR PT.
[2022-07-22 20:00] VITALS: BP 134/77
[2022-07-23] VITALS: BP 141/75
[2022-07-23 04:00] VITALS: BP 136/78
[2022-07-23] MEDS: BLOOD SUGAR DIAGNOSTIC 1 EACH STRIP IN SCH ×3 (06:03→17:24)
[2022-07-23] MEDS: INSULIN REGULAR, HUMAN 100 UNIT/ML 3 ML VIAL SQ PRN ×3 (06:08→17:26)
--- NOTE | 2022-07-23 06:45 | NUR ---
ON SITE CONSTRUCTION SUPERINTENDENT CLOSING NOTE PATIENT AWAKE IN BED ALERT/ORIENTED X 3, PT ABLE TO MAKE NEEDS KNOWN. PATIENT STABLE ON 2 LPM O2 VIA NASAL CANNULA, NO S/S OF DISTRESS OR SOB NOTED, BREATHING EVEN AND UNLABORED. PATIENT ON EXTERNAL SURFACE BOSS READING SINUS RHYTHM, HR: 97. IV ACCESS ON RIGHT WRIST #22G INTACT AND SALINE LOCKED. PUREWICK IN PLACE AND DRAINING YELLOW URINE, 700 ML DRAINED. ALL DUE MEDS GIVEN ORDERED, PT NEEDS MET THROUGHOUT SHIFT. SAFETY MEASURES IN PLACE: CALL LIGHT WITHIN REACH, SIDE RAILS UP X 3, BED LOCKED IN LOWEST POSITION, HOB ELEVATED, BED ALARM ON. WILL ENDORSE TO MORNING SHIFT RN FOR CONTINUITY OF CARE.
--- NOTE | 2022-07-23 07:27 | NUR ---
PARI MUTUEL CLERK OPENING NOTE RECEIVED PT ASLEEP IN BED, EASILY AROUSED. PT IS A/OX3, INDONESIAN SPEAKING. PT ABLE TO MAKE NEEDS KNOWN. ON O2 AT 2L/MIN VIA NASAL CANNULA, TOLERATING WELL. NO SOB NOTED. NOT IN ANY SIGN OF RESPIRATORY DISTRESS. PT IS ON CARDIAC TELE MONITOR WITH CURRENT READING OF SINUS RHYTHM, HR 88. NO C/O CARDIAC DISTRESS VOICED OUT AT THIS TIME. IV ACCESS ON RIGHT WRIST G#22, INTACT AND PATENT. SAFETY MEASURES IN PLACE: BED IN LOWEST AND LOCKED POSITION, SIDE RAILS UPX2, AND CALL LIGHT WITHIN REACH. WILL CONTINUE TO MONITOR PT.
[2022-07-23 08:00] VITALS: BP 110/69
[2022-07-23] MEDS: PANTOPRAZOLE 40 MG TABLET.DR PO SCH (08:10)
[2022-07-23] MEDS: GLIMEPIRIDE 4 MG TABLET PO SCH ×2 (08:13→17:20)
[2022-07-23] MEDS: DAPAGLIFLOZIN PROPANEDIOL 5 MG TABLET PO SCH (08:13)
[2022-07-23] MEDS: HEPARIN SODIUM, PORCINE 5000 UNITS/1 ML VIAL SQ SCH (08:16)
[2022-07-23] MEDS: CLOTRIMAZOLE 1% 15 GM TUBE TP SCH ×2 (08:24→17:20)
[2022-07-23] MEDS ORDERED: AMOX-430 PO (10:49)
[2022-07-23 12:00] VITALS: BP 117/83
[2022-07-23 16:00] VITALS: BP 113/59
[2022-07-23] MEDS: CEFTRIAXONE 1 G in IV D5W 50 ML IV SCH (17:21)
--- NOTE | 2022-07-23 18:35 | NUR ---
FISH TECHNOLOGIST NOTE PT DISCHARGED TO HOME IN STABLE CONDITION. PT A/O X3, BELGI[place] SPEAKING. CLINICAL RESOURCE DIRECTOR AVAILABLE NEEDED. PT ABLE TO MAKE NEEDS KNOWN. PT IS ON ROOM AIR, TOLERATING WELL WITH SPO2 AT 96%. NO SOB NOTED. NOT IN ANY SIGN OF RESPIRATORY DISTRESS. VITAL SIGNS TAKEN, STABLE, AND RECORDED. PHOTOGRAPHS OF SKIN ISSUES TAKEN AND FILED IN THE CHART. ALL BELONGINGS ACCOUNTED FOR. DISCHARGED INSTRUCTIONS AND HEALTH TEACHINGS INCLUDING THE ANTIBIOTICS ORDERED EXPLAINED TO THE PT. PT VERBALIZED UNDERSTANDING OF INSTRUCTIONS AND HEALTH TEACHINGS. IV ACCESS ON RIGHT WRIST G#22 REMOVED WITH NO ACTIVE BLEEDING NOTED. DRY PRESSURE DRESSING APPLIED AT THE SITE. WRISTBAND REMOVED. PT LEFT THE UNIT AT 1830 VIA [place] ACCOMPANIED BY 2 EMT'S. MD AND CHARGED NURSE AWARE OF DISCHARGED.
== END 2022-07-23 18:30 | disposition home health service (06) | DRG 871 ==
LOC: ER 14:45 → TELE 18:16 → MED 07-20 17:10 → TELE 07-21 00:01
PROVIDERS: ADMIT Nurse Practitioner Family; ATTEND Internal Medicine
DX: A41.9 Sepsis, unspecified organism (principal); J15.9 Unspecified bacterial pneumonia; N17.0 Acute kidney failure with tubular necrosis; E44.0 Moderate protein-calorie malnutrition; E87.1 Hypo-osmolality and hyponatremia; G93.40 Encephalopathy, unspecified; Z20.822 Contact with and (suspected) exposure to COVID-19; E11.21 Type 2 diabetes mellitus with diabetic nephropathy; E11.65 Type 2 diabetes mellitus with hyperglycemia; K21.9 Gastro-esophageal reflux disease without esophagitis; Z87.81 Personal history of (healed) traumatic fracture; Z79.84 Long term (current) use of oral hypoglycemic drugs; Z79.82 Long term (current) use of aspirin; Z79.899 Other long term (current) drug therapy; E78.5 Hyperlipidemia, unspecified; M19.90 Unspecified osteoarthritis, unspecified site; M77.9 Enthesopathy, unspecified; I50.9 Heart failure, unspecified; I11.0 Hypertensive heart disease with heart failure; I25.10 Atherosclerotic heart disease of native coronary artery without angina pectoris; Z86.73 Personal history of transient ischemic attack (TIA), and cerebral infarction without residual deficits; Z79.51 Long term (current) use of inhaled steroids; D50.9 Iron deficiency anemia, unspecified; E87.6 Hypokalemia; E88.09 Other disorders of plasma-protein metabolism, not elsewhere classified; I25.2 Old myocardial infarction
CPT/HCPCS: 36415; 71045-TC; 80048-TC; 80053-TC; 80061-TC; 80076-TC; 82728-TC; 82962-TC; 83540-TC; 83605-TC; 83690-TC; 83735-TC; 83880; 84100-TC; 84443-TC; 84484-TC; 85025-TC; 87040-TC; 87081-TC; 94799-TC; 97116-TC; 97530-TC; C9803; G0378; J0456; J0696; J1644; J1815; J1940; J2916; J3475; J7030; J7060